=== PATIENT | female | born 1935 | race Caucasian/White ===

== ENCOUNTER 2017-12-20 11:41 | Outpatient (CLI) | payer MEDICARE, BC ==
[~2017-12-20] VITALS: Ht 167.6 cm; Wt 72.3 kg
[~2017-12-20 11:41] MED LIST: ALENDRONATE SOD70 MG PO; CALTRATE 600 M600 M1 PO; COLACE100 MG PO; COLACE50 MG/5 ML PO; COUMADIN2.5 MG PO; ELIQUIS2.5 MG PO; EZFE 200200 MG PO; HYDROCODON-ACE1 EAC7 PO; LANOXIN125 MCG PO; LEVOXYL75 MCG PO; LISINOPRIL10 MG PO; MECLIZINE HCL12.5 MG PO; METOPROLOL TART50 MG PO; PRILOSEC20 MG PO; SENNA8.6 MG PO; SUPER B COMPLE150 MG PO; ULTRAM50 MG PO; ZOCOR20 MG PO
[2017-12-20 12:36] VITALS: BP 143/96; Ht 167.6 cm; Wt 72.3 kg
== END 2017-12-20 19:06 | disposition home or self-care (01) ==
LOC: D.OPS 11:41
DX: D64.9 Anemia, unspecified (principal)

== ENCOUNTER 2017-12-30 13:03 | Day surgery (SDC) | payer MEDICARE, BC ==
[~2017-12-30] VITALS: Ht 162.6 cm; Wt 72.3 kg
--- NOTE | ~2017-12-30 | OP ---
PATIENT NAME: MITA MULLEN MEDICAL RECORD: [id number] :35 LOCATION:D.OPS ADMISSION DATE: SURGEON: YOLY BARCENAS DO DATE OF OPERATION: 12/30/2017 PROCEDURE: Colonoscopy with biopsy and polypectomy. INDICATION FOR PROCEDURE: Iron-deficiency anemia, altered bowel function, chronic constipation. SCOPE: Olympus video pediatric colonoscope. MEDICATIONS: Propofol 430 mg IV per anesthesia. WITHDRAWAL TIME: 24 minutes. ESTIMATED BLOOD LOSS: Minimal. COMPLICATIONS: None. FINDINGS: Informed consent was given. The patient was made comfortable with the above medication. After reaching an adequate level of sedation by slow IV push, the patient was placed on her left side. A digital rectal examination was performed and was normal. The endoscope was then advanced under direct visualization through the rectum to the cecum with visualization of the appendiceal orifice and the ileocecal valve. The scope was slowly withdrawn and mucosa was carefully examined. The prep quality was good. In the cecum, there was a large flat polyp that had couple extensions outward. The polyp was sessile and measured approximately 1.5-2 cm. Cold forceps biopsies were taken of the polyp to submit for histology. The polyp was not removed on today's examination due to its location and morphology. A second polyp was located in the ascending colon. This polyp was a mixed flat and sessile polyp. A sessile component measured approximately 9 mm in size while the flat extension along the fold appeared to extend out approximately 1 cm in length. Cold forceps biopsies were taken from both the sessile component as well as the flat portion of the polyp along the fold. Zaida ink tattooing was performed just distal to this site for future intervention. There was another ascending colon polyp which was benign appearing and sessile and measured approximately 5 mm in diameter, which was removed using hot forceps in one piece and completely retrieved. A single transverse polyp which was benign appearing, sessile, and measuring approximately 4-5 mm in diameter was also removed using hot forceps in one piece and completely retrieved. There was evidence of vhzl-xp-zqqhvyoj diverticulosis involving the left side of the colon. There was no evidence of diverticulitis. Retroflexion was performed in the rectum with visualization of grade II nonbleeding internal hemorrhoids. The endoscope was then withdrawn from the patient. The patient tolerated the procedure well and there were no complications. IMPRESSION: 1. Few benign-appearing sessile polyps, which were removed using hot forceps on today's examination. 2. Two larger polyps with differing morphologies were located in cecum and ascending colon. These polyps were biopsied, but were not removed on today's examination due to their higher risk nature. 3. Grade II internal hemorrhoids without bleeding. OPERATIVE REPORT [id number] MITA MULLEN 4. Mbks-nv-yjfrnjpr diverticulosis of the left-sided colon. PLAN AND RECOMMENDATIONS: 1. Discharge home when recovery parameters are met. 2. Followup biopsy specimen results. 3. We will make a referral to Dr. Resendiz for endoscopic therapy versus surgical therapy based on results of biopsies taken today. If endoscopic therapy is undertaken, these polyps probably can be handled with combination of argon plasma coagulation and some snare cautery. 4. High-fiber diet. 5. Continue current medications. 6. Proceed with upper endoscopy. I do not see anything on today's examination that specifically explains her chronic iron-deficiency anemia. TRANSINT:[id number] Voice Confirmation ID: [id number] DOCUMENT ID: [id number] YOLY BARCENAS DO at 1524 CC: [id number] DICTATION DATE: 12/30/17 1456 EDGER MACHINE OPERATOR: 12/30/17 192 [facility] 12/30/17 [facility] [address] [place] [address]
[2017-12-30] MEDS ORDERED: COUMADIN1 MG PO (13:43)
[2017-12-30] MEDS ORDERED: PROPAFENONE HC150 MG PO (13:44)
[2017-12-30] MEDS ORDERED: ZANTAC 7575 MG PO (13:48)
[2017-12-30 13:53] VITALS: BP 179/76; Ht 162.6 cm; Wt 72.3 kg
[2017-12-30 13:54] LABS: BASOPHILS 0 % (0-2); EOSINOPHILS 2.4 % (0-7); HEMATOCRIT 35.4 % (36.0-48.0); HEMOGLOBIN 10.6 g/dL (12-16); IMMATURE GRANULOCYTES 0.3 % (0-5); MCH 26.2 pg (26.0-34.0); MCHC 29.9 g/dL (31.0-37.0); MCV 87.6 fL (80.0-100.0); MEAN PLATELET VOLUME 10.2 fL (7.4-10.4); MONOCYTES 11.8 % (2-11); NEUTROPHILS 56.5 % (40-80); PLATELET COUNT 215 10x3/uL (130-400); RBC 4.04 10x6/uL (4.00-5.40); RDW 15.5 % (11.5-14.5); WBC 3.4 10x3/uL (4.8-10.8)
[2017-12-30 14:04] LABS: APTT 31.4 SECONDS (22.8-39.4); INR 1.09 (0.85-1.17); PROTIME 13.7 SECONDS (11.6-15.0)
[2017-12-30 14:06] LABS: ANION GAP 12.2 mmol/L (8-16); CALCIUM 9.1 mg/dL (8.5-10.1); CREATININE - SERUM 1.1 mg/dL (0.6-1.3); POTASSIUM - SERUM 4.2 mmol/L (3.5-5.1)
== END 2017-12-30 16:00 | disposition home or self-care (01) ==
LOC: D.OPS 13:03
PROVIDERS: Anesthesiology
DX: D50.9 Iron deficiency anemia, unspecified (principal); K59.00 Constipation, unspecified; K64.1 Second degree hemorrhoids; D12.2 Benign neoplasm of ascending colon; D12.0 Benign neoplasm of cecum; Z01.812 Encounter for preprocedural laboratory examination; E03.9 Hypothyroidism, unspecified; J44.9 Chronic obstructive pulmonary disease, unspecified

== ENCOUNTER 2018-02-18 08:46 | Day surgery (SDC) | payer MEDICARE, BC ==
[~2018-02-18] VITALS: Ht 162.6 cm; Wt 70.8 kg
--- NOTE | ~2018-02-18 | OP ---
PATIENT NAME: MITA MLULEN MEDICAL RECORD: [id number] :35 LOCATION:D.OPS ADMISSION DATE: SURGEON: ANA SIMPSON MD DATE OF OPERATION: 02/18/2018 PREOPERATIVE DIAGNOSIS: Complex right-sided colon polyps. POSTOPERATIVE DIAGNOSES: Complex right-sided colon polyps with a very suspicious polyp within the cecum that was ulcerated. I had to remove this polyp and go kind of deep within the cecal wall and in order to reinforce this area, I placed a row of endoscopic clips. PROCEDURES: 1. Total colonoscopy to cecum. 2. Submucosal epinephrine injections times 2. 3. Snare polypectomies times 2. 4. Ablation of polypoid tissue with the argon plasma management accountant, which is a radiofrequency type of ablation. 5. Placement of endoscopic clips times 4 within the cecum. 6. Endoscopic tattooing of the area near the cecal polypectomy site. SURGEON: Ana Simpson MD TOURIST CABIN KEEPER: None. BLOOD LOSS: Minimal. ANESTHESIA: General. COMPLICATIONS: None. OPERATIVE COURSE: The patient was conveyed to the operating room electively on 02/18/2018. General anesthesia was induced by the anesthesia staff. The patient was placed in the Hoang position. A digital rectal examination was performed. A colonoscope was inserted through the anus. It was easily advanced to the cecum. The prep was adequate. Upon withdrawal, I irrigated and aspirated extensively. I dragged the folds. The pullback was greater than 35-minute pullback. Within the cecum, I advanced a sclerotherapy needle. Endoscopic submucosal injection of epinephrine was performed. There was a good lift to the polyp even centrally. I was concerned about this polyp because there is central ulceration and this can be one of the stigmata of a malignant polyp. I advanced an endoscopic snare. I was able to perform a snare polypectomy of about 95% of the polyp. The remaining polypoid tissue was ablated utilizing the argon plasma management accountant with the right colon setting in the forced mode. I had to go kind of deep in order to remove the polyp. As the cecum is the thinnest area within the colon, I wanted to prevent a perforation. I reinforced the ulcerated area where the polyp had been removed with endoscopic clips. A row of 4 endoscopic clips were placed. In order to identify the area in the future if a laparoscopic cecectomy or a right colectomy is necessary, I advanced a sclerotherapy needle and performed a tattooing. This consisted of inserting the sclerotherapy needle into the submucosal tissues near the polypectomy site and injecting several cc of Zaida ink. OPERATIVE REPORT [id number] PAZMITA LUPEJOSE I then grasped the polyp with an endoscopic retrieval net and withdrew the polyp out through the anus. I then readvanced the endoscope to the ascending colon. This is at the site where a tattooing of the polyp had been performed, although I could not identify the tattoo due to fecal material on the colonic bradshaw. The tattoo was on a fold. I performed a submucosal epinephrine injection into the fold and got a good rise of the polyp under a pillow of epinephrine. I then performed a snare polypectomy at the base of the polyp. This appeared to have removed the polyp in its entirety. In case there was any residual polypoid tissue, I ablated the surrounding mucosa with the argon plasma management accountant utilizing the right colon setting in the forced mode. I grasped the polyp with an endoscopic retrieval net and withdrew it out through the anus. The patient was then extubated and conveyed to the post-anesthesia care unit where she was in stable condition. 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 I will see her in the office in 2-3 weeks. It is very likely I will recommend a repeat argon plasma coagulation treatment in 1 year. If either polyp harbors a malignancy, then the patient will require a colectomy. TRANSINT:[id number] Voice Confirmation ID: [id number] DOCUMENT ID: [id number] ANA SIMPSON MD at 1227 CC: GALDINO MIGUEL, JAKE YODER and YOLY BARCENAS DO [id number] DICTATION DATE: 02/18/18 1451 PERCHER: 02/18/18 1600 [facility] 02/18/18 [id number] [place] [address]
[~2018-02-18 08:46] MED LIST changes: +COUMADIN1 MG PO; +PROPAFENONE HC150 MG PO; +ZANTAC 7575 MG PO
[2018-02-18 09:41] LABS: BASOPHILS 0.3 % (0-2); HEMATOCRIT 28.3 % (36.0-48.0); HEMOGLOBIN 8.6 g/dL (12-16); IMMATURE GRANULOCYTES 0.3 % (0-5); MCH 27.4 pg (26.0-34.0); MCHC 30.4 g/dL (31.0-37.0); MCV 90.1 fL (80.0-100.0); MEAN PLATELET VOLUME 9.2 fL (7.4-10.4); MONOCYTES 11.1 % (2-11); NEUTROPHILS 56.3 % (40-80); RBC 3.14 10x6/uL (4.00-5.40); RDW 16.8 % (11.5-14.5); WBC 3.3 10x3/uL (4.8-10.8)
[2018-02-18] MEDS ORDERED: FUROSEMIDE20 MG PO (09:44)
[2018-02-18] MEDS ORDERED: KLOR-CON20 MEQ/PKT PO (09:45)
[2018-02-18 09:51] VITALS: BP 143/74; Ht 162.6 cm; Wt 70.8 kg
[2018-02-18 09:51] LABS: PLATELET COUNT 171 10x3/uL (130-400)
[2018-02-18 09:56] LABS: APTT 36.9 SECONDS (22.8-39.4); INR 1.57 (0.85-1.17); PROTIME 18.2 SECONDS (11.6-15.0)
[2018-02-18 10:01] LABS: ANION GAP 11.6 mmol/L (8-16); CALCIUM 8.9 mg/dL (8.5-10.1); CARBON DIOXIDE 28.5 mmol/L (21.0-32.0); CREATININE - SERUM 1.4 mg/dL (0.6-1.3); POTASSIUM - SERUM 4.1 mmol/L (3.5-5.1)
== END 2018-02-18 17:45 | disposition home or self-care (01) ==
LOC: D.OPS 08:46
PROVIDERS: Anesthesiology
DX: D12.2 Benign neoplasm of ascending colon (principal); D12.0 Benign neoplasm of cecum; K20.9 Esophagitis, unspecified; K29.50 Unspecified chronic gastritis without bleeding; Z01.812 Encounter for preprocedural laboratory examination

== ENCOUNTER 2018-04-16 08:48 | Outpatient (CLI) | payer MEDICARE, BC ==
[~2018-04-16] VITALS: Ht 167.6 cm; Wt 70.0 kg
[~2018-04-16 08:48] MED LIST changes: +FUROSEMIDE20 MG PO; +KLOR-CON20 MEQ/PKT PO
[2018-04-16 11:26] VITALS: BP 147/72; Ht 167.6 cm; Wt 70.0 kg
== END 2018-04-16 16:00 | disposition home or self-care (01) ==
LOC: D.OPS 08:48
DX: D64.9 Anemia, unspecified (principal); Z01.812 Encounter for preprocedural laboratory examination

== ENCOUNTER 2018-09-09 09:47 | Day surgery (SDC) | payer MEDICARE, BC ==
[~2018-09-09] VITALS: Ht 167.6 cm; Wt 64.5 kg
--- NOTE | ~2018-09-09 | OP ---
PATIENT NAME: MITA MULLEN MEDICAL RECORD: [id number] :35 LOCATION:D.[facility] ADMISSION DATE: SURGEON: AIMEE SOMMERS MD DATE OF OPERATION: 09/09/2018 PROCEDURE: EGD with biopsy. COMMERCIAL TITLE EXAMINER: Aimee Sommers MD SCOPE: Olympus video gastroscope. MEDICATIONS: Per TIVA anesthesia. The patient received 100 mg of propofol for this procedure, O2 4 liters. 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 FINDINGS AND DESCRIPTION OF PROCEDURE: Informed consent was given. The patient was made comfortable with the above medications. After reaching an adequate level of sedation by slow IV push, the patient was placed on her left side. The endoscope was then advanced under direct visualization through the posterior pharyngeal area and advanced to the distal esophagus. At the distal esophageal area, inflammation, erythema and edema was noted and biopsies were obtained. The patient has a history of Guevara's esophagus in the past. No ulcers or erosions were noted. On advancing the scope, it was noted that the patient does have a small hiatal hernia, which was seen both on direct and retroflex views. The gastric mucosa was significant for some very mild inflammation noted throughout. A biopsy was taken at the antral area looking for the presence of Helicobacter pylori. No ulcers or erosions were seen. The duodenal bulb to the second portion had minimal inflammation present. The scope was then withdrawn. IMPRESSION: 1. Lnix-bv-npbsuykr distal esophagitis in a patient with a history of Guevara's esophagus. No ulcers or erosions noted. 2. Small hiatal hernia. 3. Mild gastritis, Helicobacter pylori biopsy taken at the antral area. 4. Very mild duodenitis noted in the duodenal bulb and the second portion. PLAN: 1. Famotidine 20 mg p.o. b.i.d. 2. No anti-inflammatory drugs if possible. 3. The patient can restart her Coumadin. 4. Follow reflux precautions stringently, both dietary and positional; that is no chocolate, tomato, citrus, caffeine, fatty food, peppermint if they are bothersome, no tobacco or alcohol. The patient should not eat late at night and sit up for at least 2 hours after every meal. TRANSINT:[id number] Voice Confirmation ID: [id number] DOCUMENT ID: [id number] OPERATIVE REPORT [id number] MITA MULLEN BRENDA MD at 1515 CC: GALDINO MIGUEL and JAKE YODER [id number] DICTATION DATE: 09/09/18 1247 RIM TURNING MACHINE OPERATOR: 09/09/18 1459 [facility] 09/09/18 [place] [id number] [place] [id number]
[2018-09-09 10:21] LABS: BASOPHILS 0.5 % (0-2); EOSINOPHILS 3.4 % (0-7); HEMATOCRIT 32.9 % (36.0-48.0); HEMOGLOBIN 10.1 g/dL (12-16); IMMATURE GRANULOCYTES 0.2 % (0-5); LYMPHOCYTES 22.5 % (15-50); MCHC 30.7 g/dL (31.0-37.0); MCV 94.5 fL (80.0-100.0); MEAN PLATELET VOLUME 10.2 fL (7.4-10.4); MONOCYTES 12.2 % (2-11); NEUTROPHILS 61.2 % (40-80); PLATELET COUNT 177 10x3/uL (130-400); RBC 3.48 10x6/uL (4.00-5.40); RDW 13.5 % (11.5-14.5); WBC 4.2 10x3/uL (4.8-10.8)
[2018-09-09 10:24] LABS: ANION GAP 9.7 mmol/L (8-16); CALCIUM 8.4 mg/dL (8.5-10.1); CARBON DIOXIDE 30.6 mmol/L (21.0-32.0); CREATININE - SERUM 1.1 mg/dL (0.6-1.3); POTASSIUM - SERUM 4.3 mmol/L (3.5-5.1)
[2018-09-09 10:29] LABS: APTT 36.9 SECONDS (22.8-39.4); INR 1.53 (0.85-1.17); PROTIME 17.8 SECONDS (11.6-15.0)
[2018-09-09 11:37] VITALS: BP 140/68; Ht 167.6 cm; Wt 64.5 kg
== END 2018-09-09 13:53 | disposition home or self-care (01) ==
LOC: D.OPS 09:47
PROVIDERS: Anesthesiology
DX: D64.9 Anemia, unspecified (principal); K21.0 Gastro-esophageal reflux disease with esophagitis; K44.9 Diaphragmatic hernia without obstruction or gangrene; K29.70 Gastritis, unspecified, without bleeding; K29.80 Duodenitis without bleeding; Z01.812 Encounter for preprocedural laboratory examination